=== PATIENT | male | born 1950 | race Caucasian/White ===

== ENCOUNTER 2021-07-02 15:58 | Emergency (ER) | payer MEDICARE ==
[~2021-07-02] VITALS: Ht 180.3 cm; Wt 96.6 kg
[2021-07-02] MEDS ORDERED: SODIUM CHLORIDE 0.9% 1000ML 1,000 ML IV SCH (17:00)
[2021-07-02] MEDS ORDERED: SODIUM CHLORIDE 0.9% 1000ML 1,000 ML ONE (17:10)
[2021-07-02] MEDS ORDERED: PIPERACILLIN/TAZOBACTAM 3.375 GM in SODIUM CHLORIDE 0.9% 50ML 50 ML IV ONE (17:30)
[2021-07-02] MEDS ORDERED: PIPERACILLIN/TAZOBACTAM 3.375 GM VIAL ONE (17:53)
[2021-07-02] MEDS ORDERED: PIPERACILLIN/TAZOBACTAM 3.375 GM in SODIUM CHLORIDE 0.9% 50ML 50 ML IV SCH (18:45)
[2021-07-02 19:50] LABS: INR 1.03; PARTIAL THROMBOPLASTIN TIME 32.9 seconds (23.8-35.5); PROTHROMBIN TIME 14.3 seconds (11.9-14.5)
[2021-07-02] MEDS ORDERED: HEPARIN 25,000 UNIT 1,500 UNIT in DEXTROSE 5% 250ML 250 ML IV SCH (20:00)
[2021-07-02] MEDS ORDERED: HEPARIN SOD (PORCINE) 5,000 UNIT/ML VIAL IV ONE (20:15)
[2021-07-02] MEDS ORDERED: HEPARIN 25,000 UNIT DRIP IV ONE (20:41)
[2021-07-02 22:57] VITALS: BP 132/65
[2021-07-03] MEDS ORDERED: IOPAMIDOL 370 MG/ML 200 ML INFUS..BTL INJ ONE (01:14)
[2021-07-03] MEDS ORDERED: SODIUM CHLORIDE 0.9% 50ML 50 ML ONE (01:15)
== END 2021-07-02 23:00 | disposition short-term general hospital (02) ==
LOC: FSED 16:07 → ER 23:00
DX: I81 Portal vein thrombosis (principal); K55.052 Diffuse acute (reversible) ischemia of intestine, part unspecified; I10 Essential (primary) hypertension; E78.5 Hyperlipidemia, unspecified; J44.9 Chronic obstructive pulmonary disease, unspecified; Z90.49 Acquired absence of other specified parts of digestive tract; F17.210 Nicotine dependence, cigarettes, uncomplicated; Z88.2 Allergy status to sulfonamides; Z20.822 Contact with and (suspected) exposure to COVID-19; I82.890 Acute embolism and thrombosis of other specified veins; N28.9 Disorder of kidney and ureter, unspecified
CPT/HCPCS: 36415; 71250; 71260; 74176; 74177; 80048; 81003; 82553; 83605; 83880; 84484; 85025; 85379; 85610; 85730; 87040; 93005; 99284; J1644; J2543; J7030; U0002; Q9967

== ENCOUNTER 2024-09-07 17:21 | Inpatient (IN) | payer MEDICARE ==
[~2024-09-07] VITALS: Ht 180.3 cm; Wt 99.8 kg
[~2024-09-07 17:21] MED LIST: ACETAMINOPHEN-1 EAC4 PO
[2024-09-07] MEDS: SODIUM CHLORIDE 0.9% 1000ML 1,000 ML IV SCH (20:12)
[2024-09-07 20:45] VITALS: PULSE 64; RESP 16; TEMP 97.7
[2024-09-07 21:20] VITALS: BP 156/77; PULSE 64; RESP 18; TEMP 97.9; O2SAT 100
[2024-09-07] MEDS: D5.45%NS/KCL 20MEQ 1,000 ML IV SCH (23:01)
[2024-09-07] MEDS ORDERED: LASIX20 MG PO (23:28)
[2024-09-07] MEDS ORDERED: LOSARTAN POTASS25 MG PO (23:28)
[2024-09-07] MEDS ORDERED: COREG12.5 MG PO (23:28)
[2024-09-07] MEDS ORDERED: PANTOPRAZOLE SO20 MG PO (23:28)
[2024-09-07] MEDS ORDERED: MULTI-VITAMIN1 EACH PO (23:28)
[2024-09-07] MEDS ORDERED: WARFARIN SODIU2.5 MG PO (23:28)
[2024-09-08] VITALS (8 sets, daily range): BP systolic 123–156; BP diastolic 73–85; PULSE 57–83; RESP 17–20; TEMP 97.3–99.7; O2SAT 96–100
[2024-09-08] MEDS ORDERED: POTASSIUM GLU2.5 MEQ PO (02:26)
[2024-09-08] MEDS ORDERED: VITAMIN C1000 MG PO (02:26)
[2024-09-08] MEDS ORDERED: D3-5000125 MCG PO (02:26)
[2024-09-08] MEDS ORDERED: ASPIRIN81 MG PO (02:26)
[2024-09-08 06:39] LABS: BASOPHILS % 0.6 % (0.0-1.0); EOSINOPHILS # (AUTO) 0.2 (0.0-0.4); EOSINOPHILS % 2.4 % (0.0-6.0); HEMATOCRIT 48.6 % (38.2-49.6); HEMOGLOBIN 15.1 g/dL (14.0-18.0); LYMPHOCYTES # (AUTO) 1.7 (1.0-3.2); LYMPHOCYTES % 24.8 % (18.0-39.1); MEAN CORPUSCULAR HEMOGLOBIN 31.7 pg (28-32); MEAN CORPUSCULAR HGB CONC 31.1 g/dL (31-35); MEAN CORPUSCULAR VOLUME 102.1 fL (81-99); MONOCYTES # (AUTO) 0.8 (0.2-0.8); MONOCYTES % 11.2 % (4.4-11.3); NEUTROPHILS # (AUTO) 4.2 (2.1-6.9); NEUTROPHILS % 60.9 % (38.7-80.0); PLATELET COUNT 189 x10e3/uL (140-360); RED BLOOD COUNT 4.76 x10e6/uL (4.3-5.7); RED CELL DISTRIBUTION WIDTH 14.5 % (11.7-14.4); WHITE BLOOD COUNT 6.94 x10e3/uL (4.8-10.8)
[2024-09-08 07:17] LABS: ALBUMIN 3.1 g/dL (3.5-5.0); ANION GAP 13.8 mmol/L (8-16); BILIRUBIN,TOTAL 0.7 mg/dL (0.2-1.2); CALCIUM 8.9 mg/dL (8.4-10.2); CREATININE, SERUM 1.12 mg/dL (0.72-1.25); POTASSIUM 3.8 mmol/L (3.5-5.1); TOTAL PROTEIN 6.1 g/dL (6.5-8.1)
[2024-09-08] MEDS ORDERED: Morphine 2mg Syringe 2 MG/ML SYR IV PRN (08:30)
[2024-09-08 09:48] LABS: INR 2.36
[2024-09-08] MEDS ORDERED: POTASSIUM CITRATE ER 10 MEQ TAB PO SCH (10:00)
[2024-09-08] MEDS: ASCORBIC ACID 500 MG TAB PO SCH (11:39)
[2024-09-08] MEDS: MULTIVITAMINS/MINERALS TAB PO SCH (11:39)
[2024-09-08] MEDS: CHOLECALCIFEROL 1,000 UNIT TAB PO SCH (11:39)
[2024-09-08] MEDS: ASPIRIN 81 MG CHEW TAB PO SCH (11:40)
[2024-09-08] MEDS: LOSARTAN POTASSIUM 25 MG TAB PO SCH (11:40)
[2024-09-08] MEDS: FUROSEMIDE 20 MG TAB PO SCH (11:40)
[2024-09-08] MEDS: CARVEDILOL 12.5 MG TAB PO SCH (11:41)
[2024-09-08] MEDS: PANTOPRAZOLE SOD 40 MG TABEC PO SCH (11:41)
[2024-09-08] MEDS: POTASSIUM CITRATE ER 10 MEQ TAB PO SCH (13:07)
[2024-09-08] MEDS: WARFARIN SOD 2.5 MG TAB PO SCH (17:57)
[2024-09-08] MEDS: ATORVASTATIN 40 MG TAB PO SCH (20:51)
[2024-09-09] VITALS (7 sets, daily range): BP systolic 147–158; BP diastolic 75–88; PULSE 61–98; RESP 18–20; TEMP 97.7–98.1; O2SAT 95–98
[2024-09-09 05:41] LABS: BASOPHILS % 0.5 % (0.0-1.0); EOSINOPHILS # (AUTO) 0.2 (0.0-0.4); EOSINOPHILS % 2.6 % (0.0-6.0); HEMATOCRIT 48.7 % (38.2-49.6); HEMOGLOBIN 15.1 g/dL (14.0-18.0); LYMPHOCYTES # (AUTO) 1.6 (1.0-3.2); LYMPHOCYTES % 26.7 % (18.0-39.1); MEAN CORPUSCULAR HEMOGLOBIN 31.9 pg (28-32); MONOCYTES # (AUTO) 0.6 (0.2-0.8); MONOCYTES % 9.8 % (4.4-11.3); NEUTROPHILS # (AUTO) 3.7 (2.1-6.9); NEUTROPHILS % 60.1 % (38.7-80.0); PLATELET COUNT 196 x10e3/uL (140-360); RED BLOOD COUNT 4.73 x10e6/uL (4.3-5.7); RED CELL DISTRIBUTION WIDTH 14.5 % (11.7-14.4); WHITE BLOOD COUNT 6.11 x10e3/uL (4.8-10.8)
[2024-09-09 06:10] LABS: ALBUMIN 2.9 g/dL (3.5-5.0); ALBUMIN/GLOBULIN RATIO 0.9 (0.8-2.0); ANION GAP 12.8 mmol/L (8-16); BILIRUBIN,TOTAL 0.7 mg/dL (0.2-1.2); CREATININE, SERUM 1.04 mg/dL (0.72-1.25); MAGNESIUM 1.7 MG/DL (1.3-2.1); POTASSIUM 3.8 mmol/L (3.5-5.1); TOTAL PROTEIN 6.1 g/dL (6.5-8.1)
[2024-09-09] MEDS ORDERED: HYDRALAZINE HCL 20 MG/ML VIAL IV PRN (10:30)
[2024-09-09] MEDS ORDERED: IOPAMIDOL 370 MG/ML 100 ML INFUS..BTL INJ ONE (12:12)
[2024-09-10] VITALS (9 sets, daily range): BP systolic 139–184; BP diastolic 74–88; PULSE 56–89; RESP 16–20; TEMP 97.5–98.6; O2SAT 94–99
[2024-09-10 05:50] LABS: BASOPHILS % 0.4 % (0.0-1.0); EOSINOPHILS # (AUTO) 0.2 (0.0-0.4); EOSINOPHILS % 2.8 % (0.0-6.0); HEMATOCRIT 47.6 % (38.2-49.6); HEMOGLOBIN 14.7 g/dL (14.0-18.0); LYMPHOCYTES # (AUTO) 1.7 (1.0-3.2); LYMPHOCYTES % 24.7 % (18.0-39.1); MEAN CORPUSCULAR HEMOGLOBIN 31.8 pg (28-32); MEAN CORPUSCULAR HGB CONC 30.9 g/dL (31-35); MONOCYTES # (AUTO) 0.7 (0.2-0.8); MONOCYTES % 10.5 % (4.4-11.3); NEUTROPHILS # (AUTO) 4.2 (2.1-6.9); NEUTROPHILS % 61.5 % (38.7-80.0); PLATELET COUNT 182 x10e3/uL (140-360); RED BLOOD COUNT 4.62 x10e6/uL (4.3-5.7); RED CELL DISTRIBUTION WIDTH 14.4 % (11.7-14.4); WHITE BLOOD COUNT 6.79 x10e3/uL (4.8-10.8)
[2024-09-10 06:31] LABS: ANION GAP 14.8 mmol/L (8-16); CALCIUM 8.7 mg/dL (8.4-10.2); CREATININE, SERUM 1.07 mg/dL (0.72-1.25); POTASSIUM 3.8 mmol/L (3.5-5.1)
[2024-09-10] MEDS: DOCUSATE SODIUM 100 MG CAP PO SCH (17:04)
[2024-09-10] MEDS: SENNOSIDES 8.6 MG TAB PO SCH (17:04)
[2024-09-10] MEDS ORDERED: ATORVASTATIN CA40 MG PO (22:47)
[2024-09-10] MEDS ORDERED: METRONIDAZOLE500 MG PO (22:47)
[2024-09-10] MEDS ORDERED: LEVOFLOXACIN750 MG PO (22:47)
[2024-09-11 08:04] VITALS: BP 165/81; PULSE 65; RESP 18; TEMP 98.4; O2SAT 100
[2024-09-11 11:59] VITALS: BP 149/88; PULSE 69; RESP 18; TEMP 98.3; O2SAT 98
== END 2024-09-11 12:15 | disposition home or self-care (01) | DRG 392 ==
LOC: FSED 17:36 → ERHOLD 20:00 → MED/SURG2 21:47
PROVIDERS: ADMIT Internal Medicine; ATTEND Internal Medicine
DX: K57.32 Diverticulitis of large intestine without perforation or abscess without bleeding (principal); C64.1 Malignant neoplasm of right kidney, except renal pelvis; N17.9 Acute kidney failure, unspecified; Q61.02 Congenital multiple renal cysts; D68.9 Coagulation defect, unspecified; N28.89 Other specified disorders of kidney and ureter; I10 Essential (primary) hypertension; E78.2 Mixed hyperlipidemia; J43.9 Emphysema, unspecified; K21.9 Gastro-esophageal reflux disease without esophagitis; F17.210 Nicotine dependence, cigarettes, uncomplicated; E66.09 Other obesity due to excess calories; Z68.30 Body mass index [BMI] 30.0-30.9, adult; Z86.718 Personal history of other venous thrombosis and embolism; Z79.01 Long term (current) use of anticoagulants; Z79.82 Long term (current) use of aspirin; Z79.899 Other long term (current) drug therapy
CPT/HCPCS: 36415; 74176; 74178; 80048; 80053; 80307; 81003; 83735; 85025; 85610; 93005; 99284; J2543; J7030; Q9967

== ENCOUNTER 2024-09-20 17:10 | Emergency (ER) | payer MEDICARE ==
[~2024-09-20] VITALS: Ht 180.3 cm; Wt 94.8 kg
[~2024-09-20 17:10] MED LIST changes: +ASPIRIN81 MG PO; +ATORVASTATIN CA40 MG PO; +COREG12.5 MG PO; +D3-5000125 MCG PO; +LASIX20 MG PO; +LEVOFLOXACIN750 MG PO; +LOSARTAN POTASS25 MG PO; +METRONIDAZOLE500 MG PO; +MULTI-VITAMIN1 EACH PO; +PANTOPRAZOLE SO20 MG PO; +POTASSIUM GLU2.5 MEQ PO; +VITAMIN C1000 MG PO; +WARFARIN SODIU2.5 MG PO
[2024-09-20 17:13] VITALS: PULSE 83; RESP 18; TEMP 97.4; O2SAT 99
[2024-09-20] MEDS ORDERED: CLEOCIN HCL300 MG PO (17:33)
== END 2024-09-20 18:00 | disposition home or self-care (01) ==
LOC: FSED 17:28
DX: L04.8 Acute lymphadenitis of other sites (principal); I10 Essential (primary) hypertension; J44.9 Chronic obstructive pulmonary disease, unspecified; E78.5 Hyperlipidemia, unspecified; Z85.89 Personal history of malignant neoplasm of other organs and systems; Z87.19 Personal history of other diseases of the digestive system
CPT/HCPCS: 99283

== ENCOUNTER 2024-10-06 10:14 | Inpatient (IN) | payer MEDICARE ==
[2024-10-06] VITALS (22 sets, daily range): BP systolic 143–181; BP diastolic 59–94; PULSE 56–81; RESP 0–21; TEMP 97.5–97.6; O2SAT 90–99
[~2024-10-06] VITALS: Ht 180.3 cm; Wt 95.3 kg
[~2024-10-06 10:14] MED LIST changes: +CLEOCIN HCL300 MG PO
[2024-10-06 11:18] LABS: INR 0.97; PROTHROMBIN TIME 13.5 seconds (11.9-14.5)
[2024-10-06 11:19] LABS: PARTIAL THROMBOPLASTIN TIME 37.8 seconds (23.8-35.5)
[2024-10-06] MEDS ORDERED: FENTANYL CITRATE/PF 100MCG/2 ML INJ ONE (12:30)
[2024-10-06] MEDS ORDERED: ROCURONIUM BROMIDE 1 ML IV ONE ×2 (12:31→12:38)
[2024-10-06] MEDS ORDERED: SEVOFLURANE INHAL SOLN 250 ML PEN BTL ONE (12:31)
[2024-10-06] MEDS ORDERED: LIDOCAINE HCL 2% LOCAL INJ 5 ML SDV VIAL INJ ONE (12:31)
[2024-10-06] MEDS ORDERED: PROPOFOL IV EMULSION 10 MG/ML 20 ML VIAL ONE (12:31)
[2024-10-06] MEDS ORDERED: ONDANSETRON HCL INJ 2MG/ML 2ML 2 MG/ML VIAL IV PRN (14:00)
[2024-10-06] MEDS: SODIUM CHLORIDE 0.9% 250ML IRRIG IR SCH (14:00)
[2024-10-06] MEDS ORDERED: ACETAMINOPHEN 1000 MG/100 ML IV PRN (14:00)
[2024-10-06] MEDS ORDERED: DIPHENHYDRAMINE HCL INJ 50 MG/ML VIAL IM PRN (14:00)
[2024-10-06] MEDS ORDERED: NALOXONE HCL INJ 0.4 MG/ML AMP IV PRN (14:00)
[2024-10-06] MEDS: LACTATED RINGER'S 1,000 ML ONE (14:01)
[2024-10-06] MEDS: CEFAZOLIN SODIUM 2 GM ONE (14:01)
[2024-10-06] MEDS ORDERED: DEXAMETHASONE SOD PHOS INJ 4 MG/ML SDV ONE ×2 (14:23→14:28)
[2024-10-06] MEDS ORDERED: LACTATED RINGER'S 1,000 ML ONE (14:52)
[2024-10-06] MEDS ORDERED: SUGAMMADEX SODIUM 200 MG/2 ML VIAL IV ONE (16:33)
[2024-10-06] MEDS: MORPHINE SULFATE 1 MG/ML 30ML PCA IV PRN (17:38)
[2024-10-06] MEDS: ONDANSETRON HCL INJ 2MG/ML 2ML 2 MG/ML VIAL IV ONE (18:04)
[2024-10-06 18:07] LABS: BASOPHILS % 0.3 % (0.0-1.0); EOSINOPHILS % 0.3 % (0.0-6.0); HEMATOCRIT 43.6 % (38.2-49.6); HEMOGLOBIN 14.3 g/dL (14.0-18.0); LYMPHOCYTES # (AUTO) 1.3 (1.0-3.2); LYMPHOCYTES % 14.3 % (18.0-39.1); MEAN CORPUSCULAR HEMOGLOBIN 32.4 pg (28-32); MEAN CORPUSCULAR HGB CONC 32.8 g/dL (31-35); MEAN CORPUSCULAR VOLUME 98.9 fL (81-99); MONOCYTES # (AUTO) 0.3 (0.2-0.8); MONOCYTES % 3.3 % (4.4-11.3); NEUTROPHILS # (AUTO) 7.2 (2.1-6.9); NEUTROPHILS % 81.5 % (38.7-80.0); PLATELET COUNT 213 x10e3/uL (140-360); RED BLOOD COUNT 4.41 x10e6/uL (4.3-5.7); RED CELL DISTRIBUTION WIDTH 14.5 % (11.7-14.4); WHITE BLOOD COUNT 8.83 x10e3/uL (4.8-10.8)
[2024-10-06] MEDS: METOCLOPRAMIDE HCL 10 MG/2ML VIAL IV ONE (18:20)
[2024-10-06 18:33] LABS: ANION GAP 16.3 mmol/L (8-16); CALCIUM 8.7 mg/dL (8.4-10.2); CREATININE, SERUM 1.3 mg/dL (0.72-1.25); POTASSIUM 4.3 mmol/L (3.5-5.1)
[2024-10-06] MEDS: ONDANSETRON HCL INJ 2MG/ML 2ML 2 MG/ML VIAL ONE (19:44)
[2024-10-06] MEDS: ALBUTEROL/IPRATROPIUM 3 ML NEB ONE (19:44)
[2024-10-06] MEDS: METOCLOPRAMIDE HCL 10 MG/2ML VIAL ONE (20:27)
[2024-10-06] MEDS ORDERED: HYDRALAZINE HCL 20 MG/ML VIAL IV PRN (20:45)
[2024-10-06] MEDS: SODIUM CHLORIDE 0.9% 1000ML 1,000 ML IV SCH (20:56)
[2024-10-07] VITALS (25 sets, daily range): BP systolic 97–168; BP diastolic 54–80; PULSE 59–89; RESP 10–25; TEMP 97.6–98.2; O2SAT 90–100
[2024-10-07] MEDS ORDERED: ALBUTEROL SULF 0.083% NEB SOLN 3 ML NEB NEB PRN (00:15)
[2024-10-07] MEDS: ONDANSETRON HCL INJ 2MG/ML 2ML 2 MG/ML VIAL IV PRN (01:31)
[2024-10-07 07:04] LABS: BASOPHILS % 0.1 % (0.0-1.0); HEMATOCRIT 41.9 % (38.2-49.6); HEMOGLOBIN 13.4 g/dL (14.0-18.0); LYMPHOCYTES % 7.4 % (18.0-39.1); MEAN CORPUSCULAR HEMOGLOBIN 31.8 pg (28-32); MEAN CORPUSCULAR VOLUME 99.5 fL (81-99); MONOCYTES # (AUTO) 1.3 (0.2-0.8); MONOCYTES % 9.1 % (4.4-11.3); NEUTROPHILS # (AUTO) 11.4 (2.1-6.9); NEUTROPHILS % 82.9 % (38.7-80.0); PLATELET COUNT 193 x10e3/uL (140-360); RED BLOOD COUNT 4.21 x10e6/uL (4.3-5.7); RED CELL DISTRIBUTION WIDTH 14.4 % (11.7-14.4)
[2024-10-07 07:48] LABS: ANION GAP 14.9 mmol/L (8-16); CALCIUM 7.9 mg/dL (8.4-10.2); CREATININE, SERUM 1.88 mg/dL (0.72-1.25); POTASSIUM 4.9 mmol/L (3.5-5.1)
[2024-10-07] MEDS: DOCUSATE SODIUM 100 MG CAP PO SCH (08:23)
[2024-10-07] MEDS: SENNOSIDES 8.6 MG TAB PO SCH (08:23)
[2024-10-07] MEDS: CARVEDILOL 12.5 MG TAB PO SCH (08:26)
[2024-10-07] MEDS: LOSARTAN POTASSIUM 25 MG TAB PO SCH (08:26)
[2024-10-07] MEDS: MAGNESIUM SULFATE 2GM/50ML 50 ML IV ONE (10:10)
[2024-10-07] MEDS: PANTOPRAZOLE SOD 40 MG TABEC PO SCH (13:06)
[2024-10-07] MEDS: ATORVASTATIN 40 MG TAB PO SCH (21:13)
[2024-10-08] VITALS (9 sets, daily range): BP systolic 111–160; BP diastolic 57–69; PULSE 66–86; RESP 16–20; TEMP 98.2–98.3; O2SAT 92–98
[2024-10-08 05:09] LABS: BASOPHILS % 0.1 % (0.0-1.0); EOSINOPHILS % 0.1 % (0.0-6.0); HEMATOCRIT 39.1 % (38.2-49.6); HEMOGLOBIN 12.5 g/dL (14.0-18.0); MEAN CORPUSCULAR HEMOGLOBIN 31.9 pg (28-32); MEAN CORPUSCULAR VOLUME 99.7 fL (81-99); MONOCYTES % 10.4 % (4.4-11.3); NEUTROPHILS # (AUTO) 7.4 (2.1-6.9); NEUTROPHILS % 78.1 % (38.7-80.0); PLATELET COUNT 183 x10e3/uL (140-360); RED BLOOD COUNT 3.92 x10e6/uL (4.3-5.7); WHITE BLOOD COUNT 9.43 x10e3/uL (4.8-10.8)
[2024-10-08 05:35] LABS: ANION GAP 14.3 mmol/L (8-16); CALCIUM 7.9 mg/dL (8.4-10.2); CREATININE, SERUM 2.17 mg/dL (0.72-1.25); POTASSIUM 4.3 mmol/L (3.5-5.1)
[2024-10-08] MEDS ORDERED: BISACODYL 10 MG SUPP PR PRN (16:45)
[2024-10-08] MEDS: BISACODYL 10 MG SUPP PR ONE (17:30)
[2024-10-08] MEDS: SODIUM CHLORIDE 0.9% 1000ML 1,000 ML IV SCH (17:30)
[2024-10-08] MEDS: SENNA-S TABLET PO SCH (17:30)
[2024-10-08] MEDS: ACETAMINOPHEN/CODEINE 300MG - 30MG TAB PO PRN (18:09)
[2024-10-09] VITALS (10 sets, daily range): BP systolic 129–168; BP diastolic 66–76; PULSE 67–82; RESP 16–20; TEMP 98.2–98.8; O2SAT 95–99
[2024-10-09 06:13] LABS: BASOPHILS % 0.3 % (0.0-1.0); EOSINOPHILS # (AUTO) 0.1 (0.0-0.4); EOSINOPHILS % 1.1 % (0.0-6.0); HEMATOCRIT 38.5 % (38.2-49.6); HEMOGLOBIN 12.4 g/dL (14.0-18.0); LYMPHOCYTES # (AUTO) 0.6 (1.0-3.2); LYMPHOCYTES % 8.2 % (18.0-39.1); MEAN CORPUSCULAR HEMOGLOBIN 31.6 pg (28-32); MEAN CORPUSCULAR HGB CONC 32.2 g/dL (31-35); MEAN CORPUSCULAR VOLUME 98.2 fL (81-99); MONOCYTES % 14.2 % (4.4-11.3); NEUTROPHILS # (AUTO) 5.6 (2.1-6.9); NEUTROPHILS % 75.9 % (38.7-80.0); PLATELET COUNT 177 x10e3/uL (140-360); RED BLOOD COUNT 3.92 x10e6/uL (4.3-5.7); RED CELL DISTRIBUTION WIDTH 14.7 % (11.7-14.4); WHITE BLOOD COUNT 7.31 x10e3/uL (4.8-10.8)
[2024-10-09 06:24] LABS: COLOR,URINE YELLOW (YELLOW)
[2024-10-09 06:25] LABS: BILIRUBIN,URINE NEGATIVE (NEGATIVE); CLARITY,URINE SL CLOUDY (CLEAR); GLUCOSE, URINE NEGATIVE (NEGATIVE); KETONES,URINE TRACE (NEGATIVE); LEUKOCYTE ESTERASE ,URINE NEGATIVE (NEGATIVE); NITRITE,URINE NEGATIVE (NEGATIVE); PH,URINE 6 (5 - 7); PROTEIN,URINE DIPSTICK 2+ (NEGATIVE); URINE UROBILINOGEN 0.2 mg/dL (0.2 - 1)
[2024-10-09 06:28] LABS: ANION GAP 11.1 mmol/L (8-16); CREATININE, SERUM 1.98 mg/dL (0.72-1.25); POTASSIUM 4.1 mmol/L (3.5-5.1)
[2024-10-09 07:14] LABS: BACTERIA,URINE FEW /HPF; EPITHELIAL CELLS,URINE RARE /LPF; RBC,URINE >50 /HPF (0-5)
[2024-10-09 07:17] LABS: HYALINE CASTS 0-1 (0-1)
[2024-10-09 07:37] LABS: EOSINOPHIL SMEAR,URINE PRESENT (NONE SEEN)
[2024-10-10] VITALS (9 sets, daily range): BP systolic 139–161; BP diastolic 68–84; PULSE 63–95; RESP 17–22; TEMP 98.1–98.8; O2SAT 94–99
[2024-10-10] MEDS: GUAIFENESIN/DEXTROMETHORPHAN LIQD 5 ML UDC PO PRN (02:27)
[2024-10-10 06:27] LABS: BASOPHILS % 0.2 % (0.0-1.0); EOSINOPHILS # (AUTO) 0.1 (0.0-0.4); EOSINOPHILS % 1.8 % (0.0-6.0); HEMATOCRIT 35.8 % (38.2-49.6); HEMOGLOBIN 11.7 g/dL (14.0-18.0); LYMPHOCYTES % 16.5 % (18.0-39.1); MEAN CORPUSCULAR HEMOGLOBIN 31.8 pg (28-32); MEAN CORPUSCULAR HGB CONC 32.7 g/dL (31-35); MEAN CORPUSCULAR VOLUME 97.3 fL (81-99); MONOCYTES # (AUTO) 0.8 (0.2-0.8); MONOCYTES % 13.2 % (4.4-11.3); NEUTROPHILS # (AUTO) 4.1 (2.1-6.9); NEUTROPHILS % 67.8 % (38.7-80.0); PLATELET COUNT 172 x10e3/uL (140-360); RED BLOOD COUNT 3.68 x10e6/uL (4.3-5.7); RED CELL DISTRIBUTION WIDTH 14.6 % (11.7-14.4)
[2024-10-10 08:19] LABS: ANION GAP 10.3 mmol/L (8-16); BLOOD UREA NITROGEN 10.52 mg/dL (7-26); CREATININE, SERUM 1.9 mg/dL (0.72-1.25); POTASSIUM 4.3 mmol/L (3.5-5.1)
[2024-10-10 08:20] LABS: CALCIUM 7.8 mg/dL (8.4-10.2)
[2024-10-10] MEDS: Morphine 2mg Syringe 2 MG/ML SYR IV PRN (15:08)
[2024-10-10] MEDS: AMLODIPINE BESYLATE 5 MG TAB PO ONE (20:18)
[2024-10-11] VITALS: BP 147/76; PULSE 74; RESP 18; TEMP 98.4; O2SAT 94
[2024-10-11 08:05] VITALS: BP 153/80; PULSE 69; RESP 18; TEMP 97.9; O2SAT 92
[2024-10-11] MEDS: AMLODIPINE BESYLATE 5 MG TAB PO SCH (08:23)
[2024-10-11 08:32] VITALS: BP 153/80; PULSE 69; RESP 18; TEMP 97.9; O2SAT 92
[2024-10-11 08:56] LABS: BASOPHILS % 0.3 % (0.0-1.0); EOSINOPHILS # (AUTO) 0.2 (0.0-0.4); EOSINOPHILS % 2.8 % (0.0-6.0); HEMATOCRIT 38.7 % (38.2-49.6); HEMOGLOBIN 12.8 g/dL (14.0-18.0); LYMPHOCYTES # (AUTO) 1.2 (1.0-3.2); LYMPHOCYTES % 17.2 % (18.0-39.1); MEAN CORPUSCULAR HEMOGLOBIN 31.6 pg (28-32); MEAN CORPUSCULAR HGB CONC 33.1 g/dL (31-35); MEAN CORPUSCULAR VOLUME 95.6 fL (81-99); MONOCYTES # (AUTO) 0.8 (0.2-0.8); MONOCYTES % 11.9 % (4.4-11.3); NEUTROPHILS # (AUTO) 4.7 (2.1-6.9); NEUTROPHILS % 67.7 % (38.7-80.0); PLATELET COUNT 215 x10e3/uL (140-360); RED BLOOD COUNT 4.05 x10e6/uL (4.3-5.7); RED CELL DISTRIBUTION WIDTH 14.5 % (11.7-14.4)
[2024-10-11 09:14] LABS: ANION GAP 15.5 mmol/L (8-16); CALCIUM 8.5 mg/dL (8.4-10.2); CREATININE, SERUM 1.7 mg/dL (0.72-1.25); MAGNESIUM 1.8 MG/DL (1.3-2.1); POTASSIUM 4.5 mmol/L (3.5-5.1)
[2024-10-11] MEDS: FUROSEMIDE INJ 10 MG/ML 4 ML VIAL IV ONE (09:28)
[2024-10-11 11:05] VITALS: BP 161/88; PULSE 71; RESP 18; TEMP 98.4; O2SAT 92
[2024-10-11 12:00] VITALS: PULSE 70; RESP 16; O2SAT 88
[2024-10-11 20:00] VITALS: BP 151/78; PULSE 71; RESP 18; TEMP 98.3; O2SAT 94
[2024-10-12] VITALS (7 sets, daily range): BP systolic 130–161; BP diastolic 71–81; PULSE 64–71; RESP 17–18; TEMP 98–98.9; O2SAT 92–99
[2024-10-12 05:04] LABS: BASOPHILS % 0.3 % (0.0-1.0); EOSINOPHILS # (AUTO) 0.2 (0.0-0.4); EOSINOPHILS % 3.2 % (0.0-6.0); HEMATOCRIT 36.8 % (38.2-49.6); HEMOGLOBIN 12.4 g/dL (14.0-18.0); LYMPHOCYTES # (AUTO) 1.4 (1.0-3.2); LYMPHOCYTES % 19.3 % (18.0-39.1); MEAN CORPUSCULAR HEMOGLOBIN 31.9 pg (28-32); MEAN CORPUSCULAR HGB CONC 33.7 g/dL (31-35); MEAN CORPUSCULAR VOLUME 94.6 fL (81-99); MONOCYTES # (AUTO) 0.8 (0.2-0.8); MONOCYTES % 11.8 % (4.4-11.3); NEUTROPHILS # (AUTO) 4.6 (2.1-6.9); NEUTROPHILS % 65.1 % (38.7-80.0); PLATELET COUNT 199 x10e3/uL (140-360); RED BLOOD COUNT 3.89 x10e6/uL (4.3-5.7); RED CELL DISTRIBUTION WIDTH 14.1 % (11.7-14.4); WHITE BLOOD COUNT 7.09 x10e3/uL (4.8-10.8)
[2024-10-12 05:36] LABS: ANION GAP 12.8 mmol/L (8-16); CALCIUM 8.4 mg/dL (8.4-10.2); CREATININE, SERUM 1.7 mg/dL (0.72-1.25); POTASSIUM 3.8 mmol/L (3.5-5.1)
[2024-10-12] MEDS: SIMETHICONE 80 MG CHEW PO PRN (05:38)
[2024-10-12] MEDS: FUROSEMIDE INJ 10 MG/ML 4 ML VIAL IV ONE (09:03)
[2024-10-12] MEDS: BISACODYL 10 MG SUPP PR PRN (10:57)
[2024-10-12] MEDS: POLYETHYLENE GLYCOL 3350 17 GM PACK PO PRN (10:57)
[2024-10-12] MEDS: MAGNESIUM HYDROXIDE 30 ML UDC PO ONE (18:23)
[2024-10-13 04:00] VITALS: BP 148/95; PULSE 65; RESP 18; TEMP 98.2; O2SAT 96
[2024-10-13 05:28] LABS: CALCIUM 8.7 mg/dL (8.4-10.2)
[2024-10-13 05:50] LABS: CREATININE, SERUM 1.82 mg/dL (0.72-1.25)
[2024-10-13 08:00] VITALS: BP 129/71; PULSE 71; RESP 18; TEMP 98.4; O2SAT 96
[2024-10-13 08:40] VITALS: BP 129/71; PULSE 71; RESP 18; TEMP 98.4; O2SAT 96
[2024-10-13 12:00] VITALS: BP 128/66; PULSE 97; RESP 18; TEMP 98.5; O2SAT 97
[2024-10-13] MEDS ORDERED: ONDANSETRON ODT8 MG PO (12:15)
[2024-10-13] MEDS ORDERED: AUGMENTIN 500-1 EACH PO (12:15)
[2024-10-13] MEDS ORDERED: NORVASC5 MG PO (12:15)
== END 2024-10-13 15:20 | disposition home or self-care (01) | DRG 656 ==
LOC: OR 10:14 → PACU V 13:58 → ICU 18:29 → MED/SURG 10-07 16:23
PROVIDERS: ADMIT Internal Medicine; ATTEND Internal Medicine
PROC: 0TB00ZZ Excision of Right Kidney, Open Approach (ICD-10-PCS; 2024-10-06)
PROC: 0TT00ZZ Resection of Right Kidney, Open Approach (ICD-10-PCS; principal; 2024-10-06 13:33)
DX: C64.1 Malignant neoplasm of right kidney, except renal pelvis (principal); J18.9 Pneumonia, unspecified organism; N17.9 Acute kidney failure, unspecified; Q61.02 Congenital multiple renal cysts; J95.89 Other postprocedural complications and disorders of respiratory system, not elsewhere classified; J98.11 Atelectasis; K56.7 Ileus, unspecified; E87.70 Fluid overload, unspecified; D64.9 Anemia, unspecified; I12.9 Hypertensive chronic kidney disease with stage 1 through stage 4 chronic kidney disease, or unspecified chronic kidney disease; N18.32 Chronic kidney disease, stage 3b; E78.2 Mixed hyperlipidemia; J44.9 Chronic obstructive pulmonary disease, unspecified; J43.9 Emphysema, unspecified; I25.10 Atherosclerotic heart disease of native coronary artery without angina pectoris; F17.210 Nicotine dependence, cigarettes, uncomplicated; E66.01 Morbid (severe) obesity due to excess calories; Z68.29 Body mass index [BMI] 29.0-29.9, adult; K21.9 Gastro-esophageal reflux disease without esophagitis; K57.30 Diverticulosis of large intestine without perforation or abscess without bleeding; I73.9 Peripheral vascular disease, unspecified; Z86.718 Personal history of other venous thrombosis and embolism; Z79.01 Long term (current) use of anticoagulants; Z85.828 Personal history of other malignant neoplasm of skin; Z79.899 Other long term (current) drug therapy; Z79.82 Long term (current) use of aspirin
CPT/HCPCS: 36415; 71045; 74018; 80048; 81001; 81015; 82550; 83735; 85025; 85610; 85730; 86850; 86900; 86920; 88112; 88304; 88305; 88307; 88342; 94799; 96361; 99252; J0690; J0696; J1100; J1940; J2003; J2270; J2405; J2765; J3475; J7030; J7050